=== PATIENT | male | born 1995 | race Hispanic/Latino ===

== ENCOUNTER 2020-01-04 09:10 | Emergency (ER) | payer OTHER, SELFPAY ==
--- NOTE | ~2020-01-04 | XR_ITS ---
XR hand RT min 3V DATE: 01/04/2020 09:40 INDICATION: Second and fifth fingers smashed TECHNIQUE: 3 views COMPARISON: None FINDINGS: There are lacerations of the distal second and fifth fingers with partial soft tissue amput ation of distal fifth finger. There are comminuted displaced fractures of the gabe of the distal phalanges of both second and fift h digits. No other fracture or any dislocation is evident. IMPRESSION: Comminuted displaced tuft fractures of the distal phalanges and soft tissue lacerations o f the second and fifth digits, with partial soft tissue amputation suggested at the distal fifth digi t. Reviewed, dictated and finalized at location A. IMPRESSION: Comminuted displaced tuft fractures of the distal phalanges and sof t tissue lacerations of the second and fifth digits, with partial soft tissue a mputation suggested at the distal fifth digit.
[2020-01-04 09:12] VITALS: BP 142/93; PULSE 68; RESP 20; TEMP 36.9; O2SAT 99
--- NOTE | 2020-01-04 09:20 | ED.UPPEXIN ---
HPI - Extremity Injury (Upper) General Chief Complaint: Extremity Injury, Upper Stated Complaint: crushed hand Time Seen by Provider: 01/04/20 09:20 Source: patient Mode of arrival: ambulatory Limitations: no limitations History of Present Illness HPI narrative: 24-year-old man was previously well comes in today complaining of injury to his right hand, specifically his 2nd and 5th fingers. Patient states he was operating a shear when his foot accidentally touched the operating pedal and got his finger smashed. He does not recall his last tetanus shot. complaint: injury to: right and finger Other Extremity Injury: Right: fingers ( 2nd, 5th) Other injuries: none Handedness: right Place: work Severity: severe Exacerbating factors: movement of extremity Context: crush Related Data Home Medications Medication Instructions Recorded Confirmed No Home Medications 01/04/20 01/04/20 Allergies Allergy/AdvReac Type Severity Reaction Status Date / Time No Known Allergies Allergy Verified 01/04/20 10:42 Review of Systems Constitutional: Constitutional: Denies chills and Denies fever(s) Respiratory: Respiratory: Denies cough Gastrointestinal: Gastrointestinal: Denies nausea and Denies vomiting Musculoskeletal: Musculoskeletal: Reports arthralgias and Reports joint swelling Integumentary/Breasts: Skin/Breast: Denies pruritus, Denies erythema and Denies rash Neurologic: Denies vertigo, Denies dizziness and Denies syncope Hematologic/Lymphatic: Hematologic/Lymphatic: Denies easy bleeding and Denies easy bruising Allergic/Immunologic: Allergic/Immunologic: Denies lip swelling and Denies tongue swelling PMFSH Surgical History Surgical History (Updated 01/04/20 @ 09:46 by Michelet Nicolas MD) History of facial surgery Social History Social History (Updated 01/04/20 @ 09:47 by Michelet Nicolas MD) Smoking status: Current every day smoker Alcohol intake: current Alcohol use details: daily Substance use: former Other substance usage details: history drug abuse, current marijuana user Living arrangements: with family Exam Const: General: healthy appearing Orientation/consciousness: patient oriented x3 Limitations: no limitations Other: Moderate to severe acute distress Eyes: Conjunctivae: conjunctivae normal Pupils: Equal, round and reactive pupils present EOM: EOMs intact bilaterally Skin: General skin exam: normal color, no jaundice and no pallor Rashes: no rashes Other: Right pinky finger shows tissue loss on the tip with loss of nail bed and nail plate. No apparent exposed bone or foreign bodies. Right index finger shows crush injury with extensive bruising and laceration on the radial and ulnar side of the pad. Some tissue was devitalized and the wounds on the radial aspect or gaping. Nail bed and plate are intact. Distal neurovascular exam is intact. Normal extensor superficialis and profundus tendons and flexor superficialis and profundus tendons to challenge. Neuro: General: patient oriented x3, moves all extremities, no focal motor deficits and CN's II-XI intact bilaterally Extrem: General: normal to inspection and no clubbing, cyanosis or edema Psych: Appearance: grossly normal and well kempt Mental Status: mental status grossly normal Affect: normal affect Attitude: cooperative Thought content: Yes Normal thought content present Course Vital Signs Vital signs: Vital Signs Temperature 36.9 C 01/04/20 09:12 Pulse Rate 68 01/04/20 09:12 Respiratory Rate 20 01/04/20 09:12 Blood Pressure 142/93 H 01/04/20 09:12 Pulse Oximetry 99 01/04/20 09:12 Temperature 36.9 C 01/04/20 09:12 Pulse Rate 68 01/04/20 09:12 Respiratory Rate 20 01/04/20 09:12 Blood Pressure 142/93 H 01/04/20 09:12 Pulse Oximetry 99 01/04/20 09:12 Procedures Laceration Laceration 1: Date: 01/04/20 Time: 09:55 Site: hand Side
--- NOTE | 2020-01-04 09:23 | PC.NURSE ---
call to warehouse associate at [facility], awaiting call back for hand plastic surgeon.
[2020-01-04] MEDS: MORPHINE SULFATE (*CRX) 2 MG/ML INJ IV PUSH ×2 (09:29→10:13)
[2020-01-04] MEDS: LIDOCAINE HCL 1% LOCAL INJ 20 ML VIAL 10 ML INFILTRATE (09:30)
[2020-01-04] MEDS: ONDANSETRON INJ 4 MG/2 ML VIAL IV PUSH (09:30)
--- NOTE | 2020-01-04 09:55 | PC.NURSE ---
erp spoke with dr lunsford.
[2020-01-04] MEDS: TETANUS,DIPHTHERIA,AC PERTUSSIS ADULT 0.5 ML (ADACEL) IM (10:15)
--- NOTE | 2020-01-04 10:20 | PC.NURSE ---
0940 NERVE BLOCK TO RIGHT 2ND DIGIT AND 5TH DIGIT PER DR FUENTES
--- NOTE | 2020-01-04 10:35 | PC.NURSE ---
REPORT TO DEEPAK MAST. DR FUENTES CONTINUES TO ATTEMPT CLOSURE OF RIGHT 2ND AND 5TH DIGITS.
[2020-01-04] MEDS: HYDROmorphone HCL INJ (*CRX) 2 MG/ML VIAL (10:54)
[2020-01-04 11:18] VITALS: BP 142/93; PULSE 58; O2SAT 96
== END 2020-01-04 11:18 | disposition home or self-care (01) ==
PROVIDERS: Emergency Provider Emergency Medicine
DX: S68.126A Partial traumatic metacarpophalangeal amputation of right little finger, initial encounter (principal); W31.9XXA Contact with unspecified machinery, initial encounter
CPT/HCPCS: 12002; 73130; 90471; 90715; 96365; 96375; 96376; 99284; J0690; J1170; J2270; J2405